=== PATIENT | male | born 1985 | race African-American/Black ===

== ENCOUNTER 2017-03-12 08:51 | Emergency (ER) | payer SELFPAY ==
--- NOTE | 2017-03-12 09:39 | EDM.PDOC ---
ED HPI GENERAL MEDICAL PROBLEM - General Chief Complaint: Abdominal Pain Stated Complaint: LUMP ON L SIDE ABDOMEN/PAIN Time Seen by Provider: 03/12/17 09:38 Source of Information: Reports: Patient History Limitations: Reports: No Limitations - History of Present Illness INITIAL COMMENTS - FREE TEXT/NARRATIVE: 31-year-old male of -[place] descent presents to the ED with diffuse left upper quadrant abdominal pain and a sense of bulging of the abdominal wall in this area for the last 2 days. Associated nausea and vomiting 1 last night. Has had loose diarrhea stools about 8 per day without blood noted for the last 2 days. Possible asthma food exposure as he does eat out a lot. Seem to get sick after eating out at a [place] restaurant in [place]. No fever chills or rigors. Pain is constant. He does not drink alcohol. Can be anywhere from a 3 to a 10 when it's bad particularily i9f he lays on it. Previous abdominal surgeries that of a laparoscopic appendectomy. He also appreciates blood intermittently with voiding. Patient is concerned about this as he had testicular cancer treated with chemotherapy and surgery in 2008. Has had some issues with bloody noses as well. Onset: Gradual Onset Date: 03/10/17 (Development of left upper quadrant abdominal pain which is now constant worse if he's which his arms above his head or stretches out the area or feel eyes on his abdomen on the left side.) Duration: Day(s): Location: Reports: Abdomen Quality: Reports: Ache, Other Severity: Moderate (Intermittent colicky component to the pain as well.) Improves with: Reports: None Worsens with: Reports: Eating Context: Denies: Activity, Exercise, Lifting, Sick Contact, Trauma Associated Symptoms: Reports: Loss of Appetite, Nausea/Vomiting (Vomited once last night due to the intensity of the pain.). 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: Reports: Other (see below) (Left upper quadrant abdomen.) Left Upper Abdomen Pain Score (Numeric/FACES): 6 - Related Data Allergies Allergy/AdvReac Type Severity Reaction Status Date / Time IV contrast Allergy Vomiting Uncoded 03/12/17 10:27 Home Meds: Home Meds Sulfamethoxazole/Trimethoprim [Bactrim Ds Tablet] 1 each PO BID #14 tablet 03/12 [Rx] Past Medical History Oncologic (Cancer) History: Reports: Other (See Below) Other Oncologic History: testicular cancer in 2009 - Past Surgical History Musculoskeletal Surgical History: Reports: Other (See Below) Other Musculoskeletal Surgeries/Procedures:: arm surgery Social & Family History - Tobacco Use Smoking Status *Q: Never Smoker - Caffeine Use Caffeine Use: Reports: None - Recreational Drug Use Recreational Drug Use: No - Living Situation & Occupation Occupation: Employed ED ROS GENERAL - Review of Systems Review Of Systems: See Below Constitutional: Reports: Malaise, Fatigue, Decreased Appetite. Denies: Fever, Chills, Weight Loss HEENT: Reports: Other (Having some problems with epistaxis intermittently.) Respiratory: Reports: No Symptoms, Other (Hurts to deep breathe or cough in the left upper quadrant of the abdomen.) Cardiovascular: Reports: No Symptoms Endocrine: Reports: No Symptoms GI/Abdominal: Reports: Abdominal Pain (See history present illness.), Diarrhea ( Loose diarrhea stools with fairly large volume losses), Decreased Appetite, Nausea, Vomiting (Vomited once last night due to the intensity of the pain). Denies: Difficulty Swallowing, Flatus, Hematemesis, Hematochezia : Reports: Other (Has noticed some intermittent bleeding with voiding. Blood) Musculoskeletal: Reports: No Symptoms Skin: Reports: No Symptoms Neurological: Reports: No Symptoms Psychiatric: Reports: No Symptoms Hematologic/Lymphatic: Reports: No Symptoms Immunologic: Reports: No Symptoms ED EXAM, GI/ABD - Physical Exam Exam: See Below Exam Limited By: No Limitations General Appearance: Alert, WD/WN, Anxious, Mild Distress Eyes: Bilateral: Normal Appearance (No jaundice.) Throat/Mouth: Normal Inspection, Normal Lips, Normal Oropharynx Head: Atraumatic, Normocephalic Neck: Normal Inspection, Supple, Non-Tender, Full Range of Motion. No: Lymphadenopathy (L), Lymphadenopathy (R) Respiratory/Chest: No Respiratory Distress, Lungs Clear, Normal Breath Sounds, Chest Non-Tender Cardiovascular: Normal Peripheral Pulses, Regular Rate, Rhythm, No Edema, No Gallop, No Murmur, No Rub GI/Abdominal Exam: Guarding (Tenderness left upper quadrant and epigastrium of the abdomen. This is with guarding.), Tender, Abnormal Bowel Sounds (Hypoactive bowel sounds.), Other (Abdominal hamilton firm palpation as he is fairly well muscled.). No: Normal Bowel Sounds, Rigid, Rebound Back Exam: Normal Inspection, Full Range of Motion. No: CVA Tenderness (L), CVA Tenderness (R) Extremities: Normal Inspection, Normal Range of Motion, Non-Tender, No Pedal Edema Neurological: Alert, Oriented, CN II-XII Intact, Normal Cognition, Normal Gait Psychiatric: Normal Affect, Normal Mood Skin Exam: Warm, Dry, Intact, Normal Color, No Rash Course - Vital Signs Last Recorded V/S: Last Vital Signs Temp 35.9 C 03/12/17 09:10 Pulse 78 03/12/17 09:10 Resp 18 03/12/17 09:10 BP 130/83 03/12/17 09:10 Pulse Ox 100 03/12/17 09:10 - Orders/Labs/Meds Orders: Active Orders 24 hr Category Date Time Status CULTURE STOOL + SHIGATOX [RM] Stat Lab 03/12/17 09:47 Uncollected CULTURE URINE [RM] Stat Lab 03/12/17 12:15 Received WBC, STOOL [OP] Stat Lab 03/12/17 09:47 Uncollected Dextrose 5%-0.9% NaCl [Dextrose 5%-Normal Saline] 1,000 Med 03/12/17 09:45 Active ml IV ASDIRECTED Medication Orders Dextrose/Sodium Chloride (Dextrose 5%-Normal Saline) 1,000 mls @ 999 mls/hr IV ASDIRECTED JOLIE Last Admin: 03/12/17 10:13 Dose: 999 mls/hr Labs: Laboratory Tests 03/12/17 03/12/17 03/12/17 Range/Units 10:10 10:10 10:10 WBC 4.54 (4.23-9.07) K/mm3 RBC 4.94 (4.63-6.08) M/mm3 Hgb 13.9 (13.7-17.5) gm/L Hct 41.1 (40.1-51.0) % MCV 83.2 (79.0-92.2) fl MCH 28.1 (25.7-32.2) pg MCHC 33.8 (32.2-35.5) g/dl RDW Std Deviation 43.0 (35.1-43.9) fL Plt Count 200 (163-337) K/mm3 MPV 11.3 (9.4-12.3) fl Neutrophils % (Manual) 43 (40-60) % Band Neutrophils % 0 (0-10) % Lymphocytes % (Manual) 50 H (20-40) % Atypical Lymphs % 0 % Monocytes % (Manual) 6 (2-10) % Eosinophils % (Manual) 1 (0.8-7.0) % Basophils % (Manual) 0 L (0.2-1.2) Platelet Estimate Adequate RBC Morph Comment Normal PT 10.7 (8.0-13.0) SECONDS INR 0.98 APTT 25 (22-36) SECONDS Sodium 140 (136-145) mEq/L Potassium 3.8 (3.5-5.1) mEq/L Chloride 105 (98-107) mEq/L Carbon Dioxide 29 (21-32) mEq/L Anion Gap 9.8 (5-15) BUN 15 (7-18) mg/dL Creatinine 1.4 H (0.7-1.3) mg/dL Est Cr Clr Drug Dosing 70.17 mL/min Estimated GFR (MDRD) > 60 (>60) mL/min BUN/Creatinine Ratio 10.7 L (14-18) Glucose 103 (74-106) mg/dL Calcium 9.2 (8.5-10.1) mg/dL Total Bilirubin 0.3 (0.2-1.0) mg/dL AST 27 (15-37) U/L ALT 60 (16-63) U/L Alkaline Phosphatase 81 (46-116) U/L C-Reactive Protein 0.2 (<1.0) mg/dL Total Protein 7.7 (6.4-8.2) g/dl Albumin 3.9 (3.4-5.0) g/dl Globulin 3.8 gm/dL Albumin/Globulin Ratio 1.0 (1-2) Lipase 129 (73-393) U/L Urine Color (Yellow) Urine Appearance (Clear) Urine pH (5.0-8.0) Ur Specific [place] (1.005-1.030) Urine Protein (Negative) Urine Glucose (UA) (Negative) Urine Ketones (Negative) Urine Occult Blood (Negative) Urine Nitrite (Negative) Urine Bilirubin (Negative) Urine Urobilinogen (0.2-1.0) Ur Leukocyte Esterase (Negative) Urine RBC (0-5) /hpf Urine WBC (0-5) /hpf Ur Epithelial Cells (0-5) /hpf Urine Bacteria (FEW) /hpf Urine Mucus (FEW) /hpf 03/12/17 Range/Units 10:20 WBC (4.23-9.07) K/mm3 RBC (4.63-6.08) M/mm3 Hgb (13.7-17.5) gm/L Hct (40.1-51.0) % MCV (79.0-92.2) fl MCH (25.7-32.2) pg MCHC (32.2-35.5) g/dl RDW Std Deviation (35.1-43.9) fL Plt Count (163-337) K/mm3 MPV (9.4-12.3) fl Neutrophils % (Manual) (40-60) % Band Neutrophils % (0-10) % Lymphocytes % (Manual) (20-40) % Atypical Lymphs % % Monocytes % (Manual) (2-10) % Eosinophils % (Manual) (0.8-7.0) % Basophils % (Manual) (0.2-1.2) Platelet Estimate RBC Morph Comment PT (8.0-13.0) SECONDS INR APTT (22-36) SECONDS Sodium (136-145) mEq/L Potassium (3.5-5.1) mEq/L Chloride (98-107) mEq/L Carbon Dioxide (21-32) mEq/L Anion Gap (5-15) BUN (7-18) mg/dL Creatinine (0.7-1.3) mg/dL Est Cr Clr Drug Dosing mL/min Estimated GFR (MDRD) (>60) mL/min BUN/Creatinine Ratio (14-18) Glucose (74-106) mg/dL Calcium (8.5-10.1) mg/dL Total Bilirubin (0.2-1.0) mg/dL AST (15-37) U/L ALT (16-63) U/L Alkaline Phosphatase (46-116) U/L C-Reactive Protein (<1.0) mg/dL Total Protein (6.4-8.2) g/dl Albumin (3.4-5.0) g/dl Globulin gm/dL Albumin/Globulin Ratio (1-2) Lipase (73-393) U/L Urine Color Yellow (Yellow) Urine Appearance Clear (Clear) Urine pH 6.0 (5.0-8.0) Ur Specific [place] 1.025 (1.005-1.030) Urine Protein Negative (Negative) Urine Glucose (UA) Negative (Negative) Urine Ketones Negative (Negative) Urine Occult Blood Negative (Negative) Urine Nitrite Negative (Negative) Urine Bilirubin Negative (Negative) Urine Urobilinogen 0.2 (0.2-1.0) Ur Leukocyte Esterase 1+ H (Negative) Urine RBC Not seen (0-5) /hpf Urine WBC 5-10 H (0-5) /hpf Ur Epithelial Cells Not seen (0-5) /hpf Urine Bacteria Not seen (FEW) /hpf Urine Mucus Not seen (FEW) /hpf Meds: Medications Generic Name Dose Route Start Last Admin Trade Name Freq PRN Reason Stop Dose Admin Dextrose/Sodium Chloride 1,000 mls @ 999 mls/hr 03/12/17 09:45 03/12/17 10:13 Dextrose 5%-Normal Saline IV 999 mls/hr ASDIRECTED JOLIE Administration Discontinued Medications Generic Name Dose Route Start Last Admin Trade Name Freq PRN Reason Stop Dose Admin Hydromorphone HCl 0.5 mg 03/12/17 09:46 03/12/17 10:14 Dilaudid IVPUSH 03/12/17 09:47 0.5 mg ONETIME ONE Administration Magnesium Citrate 300 ml 03/12/17 12:09 03/12/17 12:15 Citrate Of Magnesia PO 03/12/17 12:10 300 ml ONETIME ONE Administration Metoclopramide HCl 10 mg 03/12/17 09:46 03/12/17 10:13 Reglan IVPUSH 03/12/17 09:47 10 mg ONETIME ONE Administration - Radiology Interpretation Free Text/Narrative:: 31-year-old male presents to the ED with left upper quadrant abdominal pain that worsens as he raises arms above his head suggesting a musculoskeletal component to his pain also worsens with coughing and deep breathing. No known injuries to this area. Associated development of diarrhea 7-8 loose stools watery stools per day for 2 days. Possibility of bad food exposure does exist. Fever or chills. Pain 8 can range anywhere from a 3 to a 10. It is worse if he lies on that side of his abdomen. Emanation reveals tenderness left upper quadrant with guarding. He does not drink alcohol and is in no had no problems with pancreatitis. History of testicular cancer dating back to 2008. He also mentioned that intermittently he's noticed some blood per urethra. This may require further investigation by way of cystoscopy. Plan is a urinalysis if he can pass his water. Plan routine labs. IV will be D5 normal saline at open. Given Dilaudid 0.5 mils grams IV for pain relief with Reglan 10 mg IV for nausea relief. One view of the abdomen will be obtained. I suspect we'll go on to CT of the abdomen due to his history of testicular cancer. - Re-Assessments/Exams Free Text/Narrative Re-Assessment/Exam: 03/12/17 10:40 KUB reveals increased stool throughout most of the ascending colon transverse colon and left upper quadrant of the abdomen. 03/12/17 12:01 Labs reveal a normal white count at 4.54 with 43% neutrophils and 50% lymphocytes suggesting possible viral infection. Hemoglobin is 13.9. Hematocrit is 40.1. Bili count is 200,000. Coags are all normal. Sodium is 140 with potassium of 3.8. Chloride is 105 with bicarbonate of 29. Anion gap is 9.8. BUN is 15 with a creatinine of 1.4. GFR is still greater than 60. Glucose is 103. Liver function normal. C-reactive protein is less than 0.2. Lipase is 129. Urinalysis shows 1+ leukocyte esterase and 5-10 WBCs per power field. Urine culture will be ordered. Note no blood was appreciated Departure - Departure Time of Disposition: 12:10 Disposition: Home, Self-Care 01 Condition: Fair Clinical Impression: Constipation by delayed colonic transit, Urinary tract infection Abdominal pain Qualifiers: Abdominal location: left upper quadrant Qualified Code(s): R10.12 - Left upper quadrant pain - Discharge Information Prescriptions: Sulfamethoxazole/Trimethoprim [Bactrim Ds Tablet] 1 each PO BID #14 tablet Instructions: Urinary Tract Infection, Adult, [id number], Abdominal Pain, Adult, [id number] Referrals: PCP,Not In Area [Primary Care Provider] - Forms: ED Department Discharge Additional Instructions: Evaluation the emergency room today in regards to diffuse left upper quadrant abdominal pain for the last few days with associated abdominal wall bulging in this area. Examination reveals active bowel sounds in all 4 quadrants. History of previous right testicular carcinoma with resection of the right testicle and treatment with chemotherapy for over a year. Considered cured. You mentioned as possible blood in the urine intermittently and urinalysis today does show that there is a low-grade urinary tract infection with 10-20 WBCs per high-power field. Urine culture was ordered. I will place her on antibiotic Bactrim double strength 1 tablet twice daily for 7 days to clear up urinary tract infection. In regards to the abdominal pain all of the lab tests were normal. X-ray however shows increased stool throughout the entire colon right hemicolon transverse colon and left upper quadrant of the colon. This is compatible was significant constipation. It is therefore Citroma or magnesium citrate suggest 10 ounces with 5-6 ounces of juice of choice by mouth once today this usually starts to work in 1-2 hours and your bowels often move for 5 times often ending in some degree of diarrhea. This should clear up the left upper quadrant abdominal pain. Since constipation is a bit of a problem for you I would suggest picking up some MiraLAX powder and taking 1 scoop or 17 g once daily to prevent this problem from occurring. They can mix with any kind of juice or solution. - My Orders Last 24 Hours: My Active Orders 03/12/17 09:45 Dextrose 5%-0.9% NaCl [Dextrose 5%-Normal Saline] 1,000 ml IV ASDIRECTED 03/12/17 09:47 CULTURE STOOL + SHIGATOX [RM] Stat WBC, STOOL [OP] Stat 03/12/17 12:15 CULTURE URINE [RM] Stat - Assessment/Plan Last 24 Hours: My Active Orders 03/12/17 09:45 Dextrose 5%-0.9% NaCl [Dextrose 5%-Normal Saline] 1,000 ml IV ASDIRECTED 03/12/17 09:47 CULTURE STOOL + SHIGATOX [RM] Stat WBC, STOOL [OP] Stat 03/12/17 12:15 CULTURE URINE [RM] Stat
[2017-03-12] MEDS ORDERED: Dextrose 5%-0.9% NaCl 1,000 ML IV SCH (09:45)
[2017-03-12] MEDS ORDERED: HYDROmorphone 0.5 MG/0.5 ML Syringe IVPUSH ONE (09:46)
[2017-03-12] MEDS ORDERED: Metoclopramide 10 MG/2 ML SDV IVPUSH ONE (09:46)
--- NOTE | 2017-03-12 11:43 | CR ---
Abdomen: Supine view of the abdomen was obtained. Comparison: No previous study. Bowel gas pattern appears normal. Calcifications are present within the pelvis compatible with phleboliths. No soft tissue abnormality is appreciated. Bony structures are within normal limits for the patient's age. Impression: 1. Unremarkable supine abdominal x-ray. Diagnostic code #2
[2017-03-12] MEDS ORDERED: Magnesium Citrate Solution 296 ML Bottle PO ONE (12:09)
== END 2017-03-12 12:35 | disposition home or self-care (01) ==
LOC: JD.ED 08:51
DX: K59.01 Slow transit constipation (principal); N39.0 Urinary tract infection, site not specified; Z91.041 Radiographic dye allergy status
CPT/HCPCS: 36415; 74018; 80053; 81001; 83690; 85025; 85610; 85730; 86140; 87086; 96361; 96374; 96375; 99284; A9270; J1170; J2765; J7042

== ENCOUNTER 2017-06-07 20:33 | Emergency (ER) | payer SELFPAY ==
[2017-06-07] MEDS ORDERED: Sodium Chloride 0.9% 10 ML Syringe FLUSH PRN (21:17)
--- NOTE | 2017-06-07 21:55 | EDM.PDOC ---
ED HPI GENERAL MEDICAL PROBLEM - General Chief Complaint: Back Pain or Injury Stated Complaint: LOWER BACK PAIN AND ARM Time Seen by Provider: 06/07/17 20:53 Source of Information: Reports: Patient History Limitations: Reports: No Limitations - History of Present Illness INITIAL COMMENTS - FREE TEXT/NARRATIVE: Patient is a 31-year-old male who presents ED complaining of chronic pain to his low back that is recently worsened. Patient has a history of falling 15 feet in 2008 injuring his back. States he has some pinched nerves secondary to herniated disc. He has intermittent sciatica down his right leg. Denies any cocci or stool. In addition he has a history of testicular cancer and states he has over the past 3 months been experiencing night sweats. He's lost only minimal weight as of recent. In addition he's had 4 day history of low volume diarrhea with 1 episode blood present. He denies any incontinence to urine or stool or saddle anesthesia. He denies any issues with walking such as tripping excessively. Patient was wearing a back brace at 1. but has lost it. He is traveling from [place] working on the [employer] here locally. He has not taken any [id number] medication. There's been no ingestion of bad or questionable food no recent sick exposures. No out of country travel. Patient has no additional past medical history and currently taking no meds. He does not smoke use recreational drugs or alcohol. Patient has had poor follow-up with his testicular cancer. Lower Back Pain Score (Numeric/FACES): 5 - Related Data Allergies Allergy/AdvReac Type Severity Reaction Status Date / Time acetaminophen [From Tylenol] Allergy Swelling Verified 06/07/17 20:42 ibuprofen [From Motrin] Allergy Itching Verified 06/07/17 20:42 IV contrast AdvReac Vomiting Uncoded 03/13/17 12:13 Home Meds: Home Meds Cyclobenzaprine [Flexeril] 10 mg PO TID PRN #12 tab 06/07/17 [Rx] Past Medical History Musculoskeletal History: Reports: Back Pain, Chronic Oncologic (Cancer) History: Reports: Other (See Below) Other Oncologic History: testicular cancer in 2008 - Past Surgical History Musculoskeletal Surgical History: Reports: Other (See Below) Other Musculoskeletal Surgeries/Procedures:: arm surgery Social & Family History - Tobacco Use Smoking Status *Q: Current Every Day Smoker Years of Tobacco use: 3 Packs/Tins Daily: 0.2 - Caffeine Use Caffeine Use: Reports: None - Recreational Drug Use Recreational Drug Use: No - Living Situation & Occupation Occupation: Employed ED ROS GENERAL - Review of Systems Review Of Systems: See Below Constitutional: Reports: Malaise, Night Sweats. Denies: Decreased Appetite HEENT: Reports: No Symptoms Respiratory: Reports: No Symptoms Cardiovascular: Reports: No Symptoms GI/Abdominal: Reports: Bloody Stool (1 episode minimal blood.), Diarrhea, Decreased Appetite, Flatus. Denies: Abdominal Pain, Black Stool, Constipation, Melena, Nausea, Vomiting : Reports: No Symptoms Musculoskeletal: Reports: Back Pain (Lower lumbar back pain midline with intermittent sciatica to the right lower extremity.) Skin: Reports: No Symptoms ED EXAM, GI/ABD - Physical Exam Exam: See Below Exam Limited By: No Limitations General Appearance: Alert, WD/WN, No Apparent Distress Ears: Hearing Grossly Normal Nose: Normal Inspection Throat/Mouth: Normal Inspection, Normal Oropharynx, Normal Voice, No Airway Compromise Neck: Normal Inspection, Supple Respiratory/Chest: No Respiratory Distress, Lungs Clear, Normal Breath Sounds, No Accessory Muscle Use Cardiovascular: Normal Peripheral Pulses, Regular Rate, Rhythm GI/Abdominal Exam: Normal Bowel Sounds, Soft, Non-Tender, No Organomegaly, No Distention (Male) Exam: Deferred Rectal (Males) Exam: Deferred Back Exam: Normal Inspection, Paraspinal Tenderness, Vertebral Tenderness ( Lower Lumbar spine) Neurological: Alert, Oriented, CN II-XII Intact, Normal Cognition, No Motor/ Sensory Deficits Psychiatric: Normal Affect, Normal Mood Skin Exam: Warm, Dry, Intact, Normal Color, No Rash Course - Vital Signs Last Recorded V/S: Last Vital Signs Temp 97.5 F 06/07/17 20:46 Pulse 86 06/07/17 20:46 Resp 20 06/07/17 20:46 BP 137/79 06/07/17 20:46 Pulse Ox 95 06/07/17 20:46 - Orders/Labs/Meds Orders: Active Orders 24 hr Category Date Time Status Peripheral IV Care [RC] . DIRECTED Care 06/07/17 21:17 Active Abdomen 2V AP Flat Upright [CR] Stat Exams 06/07/17 21:17 Taken Lumbar Spine 2 or 3V [CR] Stat Exams 05/03/18 21:17 Taken ESR [SEDIMENTATION RATE AUTO] [HEME] Stat Lab 06/07/17 21:42 Received WBC, STOOL [OP] Stat Lab 06/07/17 21:17 Ordered Sodium Chloride 0.9% [Saline Flush] Med 06/07/17 21:17 Active 10 ml FLUSH ASDIRECTED PRN Peripheral IV Insertion Adult [OM.PC] Routine Oth 06/07/17 21:17 Ordered Medication Orders Sodium Chloride (Saline Flush) 10 ml FLUSH ASDIRECTED PRN PRN Reason: Keep Vein Open Labs: Laboratory Tests 06/07/17 06/07/17 06/07/17 Range/Units 21:42 21:42 21:48 WBC 4.97 (4.23-9.07) K/mm3 RBC 4.76 (4.63-6.08) M/mm3 Hgb 13.4 L (13.7-17.5) gm/L Hct 39.7 L (40.1-51.0) % MCV 83.4 (79.0-92.2) fl MCH 28.2 (25.7-32.2) pg MCHC 33.8 (32.2-35.5) g/dl RDW Std Deviation 43.9 (35.1-43.9) fL Plt Count 196 (163-337) K/mm3 MPV 10.7 (9.4-12.3) fl Neutrophils % (Manual) 39 L (40-60) % Band Neutrophils % 0 (0-10) % Lymphocytes % (Manual) 52 H (20-40) % Atypical Lymphs % 0 % Monocytes % (Manual) 3 (2-10) % Eosinophils % (Manual) 6 (0.8-7.0) % Basophils % (Manual) 0 L (0.2-1.2) Platelet Estimate Adequate Plt Morphology Comment Normal Poikilocytosis 1+ slight RBC Morph Comment Not Reportable Sodium 139 (136-145) mEq/L Potassium 3.5 (3.5-5.1) mEq/L Chloride 105 (98-107) mEq/L Carbon Dioxide 24 (21-32) mEq/L Anion Gap 13.5 (5-15) BUN 15 (7-18) mg/dL Creatinine 1.4 H (0.7-1.3) mg/dL Est Cr Clr Drug Dosing 67.72 mL/min Estimated GFR (MDRD) > 60 (>60) mL/min BUN/Creatinine Ratio 10.7 L (14-18) Glucose 132 H (74-106) mg/dL Calcium 9.3 (8.5-10.1) mg/dL Total Bilirubin 0.4 (0.2-1.0) mg/dL AST 30 (15-37) U/L ALT 64 H (16-63) U/L Alkaline Phosphatase 90 (46-116) U/L C-Reactive Protein 0.5 (<1.0) mg/dL Total Protein 7.5 (6.4-8.2) g/dl Albumin 3.7 (3.4-5.0) g/dl Globulin 3.8 gm/dL Albumin/Globulin Ratio 1.0 (1-2) Urine Color Light yellow (Yellow) Urine Appearance Clear (Clear) Urine pH 6.0 (5.0-8.0) Ur Specific [place] 1.020 (1.005-1.030) Urine Protein Negative (Negative) Urine Glucose (UA) Negative (Negative) Urine Ketones Negative (Negative) Urine Occult Blood Trace-intact H (Negative) Urine Nitrite Negative (Negative) Urine Bilirubin Negative (Negative) Urine Urobilinogen 0.2 (0.2-1.0) Ur Leukocyte Esterase Negative (Negative) Urine RBC 0-5 (0-5) /hpf Urine WBC 0-5 (0-5) /hpf Ur Epithelial Cells Not seen (0-5) /hpf Urine Bacteria Not seen (FEW) /hpf Urine Mucus Not seen (FEW) /hpf Meds: Medications Generic Name Dose Route Start Last Admin Trade Name Keisha PRN Reason Stop Dose Admin Sodium Chloride 10 ml 06/07/17 21:17 Saline Flush FLUSH ASDIRECTED PRN Keep Vein Open - Re-Assessments/Exams Free Text/Narrative Re-Assessment/Exam: I ordered CBC, chem 14, CRP, ESR, UA, stool daily C, two-view of the abdomen, and lumbar spine. Initially was going us order a IV discontinued to IV contrast. Patient's allergy to IV contrast thus will not be obtained. Patient's pain is [id number] at this point. He is not appearing acute distress. He does not walk with no findings of acute distress. 06/07/17 22:35 X-ray of the lumbar spine reveals no new or chronic injury. Lordosis noted suggesting muscle spasms. Final interpretation is pending. Reviewed with Dr. Almazan. X-ray of the abdomen revealed nonspecific air and stool pattern no acute findings. Labs reviewed: WBC 4.97,HGB 13.4, Platelet count 196, na 139, K+ 3.5, Cr 1.4, glucose 132, ALT 64, CRP 0.5. UA revealed trace intact blood. ESR pending. Patient has not provided a stool sample. ESR: Departure - Departure Time of Disposition: 22:42 Disposition: Home, Self-Care 01 Condition: Good Clinical Impression: Lordosis of lumbar region, Chronic pain of right upper extremity, Elevated C- reactive protein Diarrhea Qualifiers: Diarrhea type: unspecified type Qualified Code(s): R19.7 - Diarrhea, unspecified Hematuria Qualifiers: Hematuria type: unspecified type Qualified Code(s): R31.9 - Hematuria, unspecified - Discharge Information Prescriptions: Cyclobenzaprine [Flexeril] 10 mg PO TID PRN #12 tab PRN Reason: Muscle Spasm Instructions: Diarrhea, Adult, Food Choices to Help Relieve Diarrhea, Adult, Chronic Pain, Adult, Back Pain, Adult, [id number], Hematuria, Adult Referrals: PCP,None [Primary Care Provider] - Forms: ED Department Discharge Additional Instructions: Take the flexeril for low back pain as directed. Refrain from driving while taking the flexeril. Utilize heat and ice to the low back. Utilize OTC biofreeze and or icey hot cream. Diarrhea suspect viral and should resolve over the next few days. Refrain from dairy products, raw fruits/vegetables, or other aggravating foods. UA did reveal small amount of blood please see PCP in the next few weeks for reevaluation to ensure resolution. Suggest following up with a provider here locally in the next week if you will be here for a while. Return to the E.D. if you develop any new or worsening symptoms. - My Orders Last 24 Hours: My Active Orders 06/07/17 21:17 Peripheral IV Care [RC] . DIRECTED Abdomen 2V AP Flat Upright [CR] Stat Lumbar Spine 2 or 3V [CR] Stat WBC, STOOL [OP] Stat Sodium Chloride 0.9% [Saline Flush] 10 ml FLUSH ASDIRECTED PRN Peripheral IV Insertion Adult [OM.PC] Routine 06/07/17 21:42 ESR [SEDIMENTATION RATE AUTO] [HEME] Stat - Assessment/Plan Last 24 Hours: My Active Orders 06/07/17 21:17 Peripheral IV Care [RC] . DIRECTED Abdomen 2V AP Flat Upright [CR] Stat Lumbar Spine 2 or 3V [CR] Stat WBC, STOOL [OP] Stat Sodium Chloride 0.9% [Saline Flush] 10 ml FLUSH ASDIRECTED PRN Peripheral IV Insertion Adult [OM.PC] Routine 06/07/17 21:42 ESR [SEDIMENTATION RATE AUTO] [HEME] Stat
--- NOTE | 2017-06-08 08:07 | CR ---
Abdomen: Supine and upright views of the abdomen were obtained. Comparison: Prior abdominal x-ray of 03/12/17. Bowel gas pattern appears normal. No abnormal soft tissue abnormalities are seen. Calcifications are noted within the pelvis compatible with phleboliths. No free air is identified. Bony structures are within normal limits for the patient's age. Impression: 1. Nothing acute is seen on two-view abdominal x-ray. Diagnostic code #2
--- NOTE | 2017-06-08 08:07 | CR ---
Lumbar spine: AP and lateral views of the lumbar spine were obtained. Comparison: No prior study. Vertebral body heights are maintained. Disc spaces are maintained. Pedicles are intact. Visualized transverse and spinous processes are intact. Sacroiliac joints are within normal limits. Loss of normal lordotic curve is seen. Surgical clips are seen within the right lower abdomen. Impression: 1. Prior right lower abdominal surgery. 2. Loss of normal lordotic curve is seen which can be due to muscle spasm as well as being developmental. 3. Two-view lumbar spine study is otherwise unremarkable. Diagnostic code #2
== END 2017-06-07 23:10 | disposition home or self-care (01) ==
LOC: JD.ED 20:33
DX: M40.56 Lordosis, unspecified, lumbar region (principal); R19.7 Diarrhea, unspecified; R79.82 Elevated C-reactive protein (CRP); M79.621 Pain in right upper arm; G89.29 Other chronic pain; R31.9 Hematuria, unspecified; F17.210 Nicotine dependence, cigarettes, uncomplicated; Z88.8 Allergy status to other drugs, medicaments and biological substances; Z91.041 Radiographic dye allergy status; Z88.6 Allergy status to analgesic agent
CPT/HCPCS: 36415; 72100; 72100-26; 74019; 74019-26; 80053; 81001; 85025; 85652; 86140; 99284